=== PATIENT | male | born 1945 | race Caucasian/White ===

== ENCOUNTER 2016-10-18 22:55 | Emergency (ER) | payer MEDICARE, OTHER ==
[2016-10-19 00:37] LABS: BUN/CREATININE RATIO 29 (0-10)
[2016-10-19 01:36] LABS: HEMOGLOBIN 13.8 gm/dl (14.0-17.5); RED BLOOD COUNT 4.49 M/UL (4.20-5.50); WHITE BLOOD COUNT 6.2 K/UL (4.5-11.0)
== END 2016-10-19 13:33 | disposition home or self-care (01) ==
LOC: ER1 22:55 → ZEROF 10-19 05:38 → ER1 10-19 13:33
PROVIDERS: Family Medicine
DX: I25.10 Atherosclerotic heart disease of native coronary artery without angina pectoris (principal); F17.200 Nicotine dependence, unspecified, uncomplicated; Z88.5 Allergy status to narcotic agent; Z95.5 Presence of coronary angioplasty implant and graft; I10 Essential (primary) hypertension; E78.5 Hyperlipidemia, unspecified; J44.9 Chronic obstructive pulmonary disease, unspecified; K21.9 Gastro-esophageal reflux disease without esophagitis; Z91.14 Patient's other noncompliance with medication regimen
CPT/HCPCS: 36415; 71010; 80053; 80061; 82550; 82553; 83874; 84443; 84484; 85025; 93005; 99285

== ENCOUNTER 2016-10-26 08:54 | Emergency (ER) | payer MEDICARE, OTHER ==
[2016-10-26 09:49] LABS: HEMOGLOBIN 13.1 gm/dl (14.0-17.5); RED BLOOD COUNT 4.3 M/UL (4.20-5.50); WHITE BLOOD COUNT 5.5 K/UL (4.5-11.0)
[2016-10-26 10:09] LABS: BUN/CREATININE RATIO 23 (0-10)
== END 2016-10-26 11:30 | disposition home or self-care (01) ==
LOC: ER1 08:54
PROVIDERS: Emergency Medicine
DX: R33.9 Retention of urine, unspecified (principal); J44.9 Chronic obstructive pulmonary disease, unspecified; I51.9 Heart disease, unspecified; F17.210 Nicotine dependence, cigarettes, uncomplicated; K59.00 Constipation, unspecified; D64.9 Anemia, unspecified; E87.6 Hypokalemia; Z88.4 Allergy status to anesthetic agent
CPT/HCPCS: 36415; 80053; 81001; 85025; 99283

== ENCOUNTER 2016-10-27 15:58 | Emergency (ER) | payer MEDICARE, OTHER | END 2016-10-27 16:36 | disposition home or self-care (01) | LOC: ER1 15:58 | DX: Z46.6 Encounter for fitting and adjustment of urinary device (principal); Z88.5 Allergy status to narcotic agent; Z88.8 Allergy status to other drugs, medicaments and biological substances; Z87.891 Personal history of nicotine dependence; I10 Essential (primary) hypertension; J44.9 Chronic obstructive pulmonary disease, unspecified; Z79.82 Long term (current) use of aspirin; Z79.899 Other long term (current) drug therapy | CPT/HCPCS: 99283 ==

== ENCOUNTER 2020-08-10 14:42 | Inpatient (IN) | payer MEDICARE, OTHER ==
[~2020-08-10] VITALS: Ht 177.8 cm; Wt 117.9 kg
[~2020-08-10 14:42] MED LIST: AMLODIPINE BESYL5 MG PO; ASPIRIN EC81 MG PO; ATORVASTATIN CA20 MG PO; AUGMENTIN 875-1 EACH PO; COLACE 100MG C100 MG PO; DECADRON4 MG PO; DECADRON6 MG PO; DULERA 100 MCG8.8 GM INH; ELIQUIS 5 MG TAB5 MG PO; ELIQUIS5 MG PO; FOLIC ACID 1 MG1 MG PO; IBUPROFEN600 MG PO; IMDUR ER TAB 3030 MG PO; IPRAT-ALBUT 0.5-3 ML INH; LEVAQUIN500 MG PO; LIPITOR TAB 2020 MG PO; LISINOPRIL10 MG PO; LOPRESSOR 25 MG25 MG PO; LOPRESSOR 50 MG50 MG PO; LOPRESSOR50 MG PO; NITROGLYCERIN0.4 MG SL; NORCO 5-325 TA1 EACH PO; OMNICEF 300 MG300 MG PO; PHENERGAN 25 MG25 M1 PO; ROBITUSSIN AC480 ML PO; VENTOLIN HFA 66.7 GM INH; ZITHROMAX TRI-500 MG PO
[2020-08-10 15:47] LABS: HEMOGLOBIN 12.3 gm/dl (14.0-17.5); RED BLOOD COUNT 4.24 M/UL (4.20-5.50); WHITE BLOOD COUNT 8.3 K/UL (4.5-11.0)
[2020-08-11 03:23] LABS: HEMOGLOBIN 11.9 gm/dl (14.0-17.5); RED BLOOD COUNT 4.03 M/UL (4.20-5.50); WHITE BLOOD COUNT 7.1 K/UL (4.5-11.0)
[2020-08-13 03:00] LABS: BUN/CREATININE RATIO 15 (0-10)
[2020-08-13 03:21] LABS: RED BLOOD COUNT 3.84 M/UL (4.20-5.50); WHITE BLOOD COUNT 7.3 K/UL (4.5-11.0)
--- NOTE | 2020-08-13 12:13 | NUR ---
PATIENT LEFT PER SURGERY STAFF FOR BRONCHOSCOPY AT 0945. CONSENTS WERE SIGNED AND WITNESSED PER STAFF BY ANDREZ CEDILLO WHO IS PATIENTS . PATIENT RETURNS TO FLOOR PER SURGERY STAFF, TOLERATED BRONCHOSCOPY WELL. RIGHT UPPER LOBE WITH BRUSHING PER REPORT. WILL RETURN TO FLOOR, SUCTION AFFIXED TO WALL OF PATIENT ROOM.
[2020-08-15 09:32] LABS: HEMOGLOBIN 10.5 gm/dl (14.0-17.5); RED BLOOD COUNT 3.53 M/UL (4.20-5.50); WHITE BLOOD COUNT 6.1 K/UL (4.5-11.0)
[2020-08-15 10:09] LABS: BUN/CREATININE RATIO 10 (0-10)
[2020-08-16 03:37] LABS: HEMOGLOBIN 10.4 gm/dl (14.0-17.5); RED BLOOD COUNT 3.49 M/UL (4.20-5.50); WHITE BLOOD COUNT 5.1 K/UL (4.5-11.0)
[2020-08-16 03:49] LABS: BUN/CREATININE RATIO 16 (0-10)
[2020-08-17 02:33] LABS: HEMOGLOBIN 10.7 gm/dl (14.0-17.5); RED BLOOD COUNT 3.64 M/UL (4.20-5.50)
[2020-08-17 02:35] LABS: WHITE BLOOD COUNT 9.4 K/UL (4.5-11.0)
[2020-08-17 02:56] LABS: BUN/CREATININE RATIO 23 (0-10)
[2020-08-17] MEDS ORDERED: AMOX TR-K CLV1 EAC4 PO (13:01)
== END 2020-08-17 13:14 | disposition left against medical advice (07) | DRG 871 ==
LOC: ER1 14:42 → ZEROF 16:00 → PROG CARE 16:00
PROVIDERS: Emergency Medicine; Internal Medicine Pulmonary Disease; Physician Assistant; ADMIT Hospitalist
PROC: 0BD48ZX Extraction of Right Upper Lobe Bronchus, Via Natural or Artificial Opening Endoscopic, Diagnostic (ICD-10-PCS; 2020-08-13)
PROC: 0B9C8ZX Drainage of Right Upper Lung Lobe, Via Natural or Artificial Opening Endoscopic, Diagnostic (ICD-10-PCS; principal; 2020-08-13 08:30)
DX: A41.9 Sepsis, unspecified organism (principal); J18.9 Pneumonia, unspecified organism; G93.41 Metabolic encephalopathy; J96.21 Acute and chronic respiratory failure with hypoxia; N17.9 Acute kidney failure, unspecified; J44.0 Chronic obstructive pulmonary disease with (acute) lower respiratory infection; J44.1 Chronic obstructive pulmonary disease with (acute) exacerbation; C34.90 Malignant neoplasm of unspecified part of unspecified bronchus or lung; R65.20 Severe sepsis without septic shock; R55 Syncope and collapse; Z20.822 Contact with and (suspected) exposure to COVID-19; E78.5 Hyperlipidemia, unspecified; I12.9 Hypertensive chronic kidney disease with stage 1 through stage 4 chronic kidney disease, or unspecified chronic kidney disease; F17.210 Nicotine dependence, cigarettes, uncomplicated; N18.30 Chronic kidney disease, stage 3 unspecified; I25.10 Atherosclerotic heart disease of native coronary artery without angina pectoris; I10 Essential (primary) hypertension; E87.6 Hypokalemia; E83.42 Hypomagnesemia; D69.6 Thrombocytopenia, unspecified; F10.10 Alcohol abuse, uncomplicated; D64.9 Anemia, unspecified; I25.2 Old myocardial infarction; Z95.5 Presence of coronary angioplasty implant and graft; Z88.8 Allergy status to other drugs, medicaments and biological substances; Z83.3 Family history of diabetes mellitus; Z80.1 Family history of malignant neoplasm of trachea, bronchus and lung; Z82.49 Family history of ischemic heart disease and other diseases of the circulatory system; Z86.711 Personal history of pulmonary embolism; Z86.16 Personal history of COVID-19; Z79.82 Long term (current) use of aspirin; Z79.01 Long term (current) use of anticoagulants
CPT/HCPCS: 36415; 36600; 70450; 71045; 71250; 80048; 80053; 80202; 81001; 82140; 82550; 82553; 82803; 83605; 83615; 83735; 83874; 83880; 84100; 84132; 84439; 84443; 84484; 85025; 85027; 85610; 85730; 86140; 87040; 87070; 87081; 87205; 88341; 88342; 93005; 94640; 94664; 94760; 96365; 96366; 96367; 96368; 96375; 96376; 97162; 99285; G0480; J0696; J2001; J2060; J2543; J2704; J2920; J3370; J3411; J3475; J3480; J7030; J7040; J7070; U0002

== ENCOUNTER → 2020-09-07 | Outpatient (CLI) | payer MEDICARE, OTHER ==
[~2020-09-07] MED LIST changes: +ALBUTEROL2.5 MG/3 M NEB; +AMLODIPINE BES2.5 MG PO; +AMOX TR-K CLV1 EAC4 PO; +ANORO ELLIPTA1 EACH INH; +CARDIZEM 60MG T60 MG PO; +DILTIAZEM 24HR120 M1 PO; +DOXYCYCLINE HY100 MG PO; +HYDROCODON-ACE1 EAC2 PO; +HYDROCODON-ACE1 EAC4 PO; +IBU800 MG PO; +ISOSORBIDE MONO30 MG PO; +LEVOFLOXACIN750 MG PO; +LIPITOR40 MG PO; +PREDNISONE 20 M20 MG PO; +PREDNISONE10 MG PO
== END ==
LOC: HEART 5 15:49
DX: J44.9 Chronic obstructive pulmonary disease, unspecified (principal); M19.90 Unspecified osteoarthritis, unspecified site; R07.9 Chest pain, unspecified; R06.00 Dyspnea, unspecified; R05 Cough; R06.2 Wheezing
CPT/HCPCS: 94010; 94729

== ENCOUNTER 2020-10-16 22:30 | Inpatient (IN) | payer MEDICARE, OTHER ==
[~2020-10-16] VITALS: Ht 177.8 cm; Wt 89.8 kg
[~2020-10-16 22:30] MED LIST changes: -ALBUTEROL2.5 MG/3 M NEB; -AMLODIPINE BES2.5 MG PO; -ANORO ELLIPTA1 EACH INH; -CARDIZEM 60MG T60 MG PO; -DILTIAZEM 24HR120 M1 PO; -DOXYCYCLINE HY100 MG PO; -HYDROCODON-ACE1 EAC2 PO; -HYDROCODON-ACE1 EAC4 PO; -IBU800 MG PO; -ISOSORBIDE MONO30 MG PO; -LEVOFLOXACIN750 MG PO; -LIPITOR40 MG PO; -PREDNISONE 20 M20 MG PO; -PREDNISONE10 MG PO
[2020-10-16 23:11] LABS: HEMOGLOBIN 12.4 gm/dl (14.0-17.5); RED BLOOD COUNT 4.33 M/UL (4.20-5.50); WHITE BLOOD COUNT 8.4 K/UL (4.5-11.0)
[2020-10-16 23:32] LABS: BUN/CREATININE RATIO 11 (0-10)
[2020-10-17] MEDS ORDERED: AMLODIPINE BESYL5 MG PO (03:38)
[2020-10-17] MEDS ORDERED: IBU800 MG PO (03:39)
[2020-10-17] MEDS ORDERED: ISOSORBIDE MONO30 MG PO (03:40)
[2020-10-17 05:57] LABS: HEMOGLOBIN 11.5 gm/dl (14.0-17.5)
[2020-10-17 06:45] LABS: RED BLOOD COUNT 4.06 M/UL (4.20-5.50); WHITE BLOOD COUNT 6.3 K/UL (4.5-11.0)
[2020-10-17 16:23] LABS: HEMOGLOBIN 11.5 gm/dl (14.0-17.5); RED BLOOD COUNT 4.06 M/UL (4.20-5.50); WHITE BLOOD COUNT 5.9 K/UL (4.5-11.0)
[2020-10-18 05:12] LABS: HEMOGLOBIN 11.2 gm/dl (14.0-17.5); RED BLOOD COUNT 3.98 M/UL (4.20-5.50); WHITE BLOOD COUNT 6.7 K/UL (4.5-11.0)
[2020-10-18 16:38] LABS: HEMOGLOBIN 11.5 gm/dl (14.0-17.5)
[2020-10-19 04:51] LABS: HEMOGLOBIN 11.6 gm/dl (14.0-17.5); RED BLOOD COUNT 4.05 M/UL (4.20-5.50); WHITE BLOOD COUNT 7.8 K/UL (4.5-11.0)
[2020-10-19] MEDS ORDERED: LEVOFLOXACIN750 MG PO (09:47)
[2020-10-19] MEDS ORDERED: DILTIAZEM 24HR120 M1 PO (09:47)
== END 2020-10-19 13:50 | disposition home or self-care (01) | DRG 871 ==
LOC: ER1 22:30 → CCU 10-17 01:55 → CDU 10-17 01:55 → CCU 10-17 03:49 → PROG CARE 10-18 18:26
PROVIDERS: Emergency Medicine; Internal Medicine; Internal Medicine Pulmonary Disease; ADMIT Internal Medicine
DX: A41.9 Sepsis, unspecified organism (principal); I26.99 Other pulmonary embolism without acute cor pulmonale; J18.9 Pneumonia, unspecified organism; C34.90 Malignant neoplasm of unspecified part of unspecified bronchus or lung; J44.0 Chronic obstructive pulmonary disease with (acute) lower respiratory infection; J44.1 Chronic obstructive pulmonary disease with (acute) exacerbation; I48.91 Unspecified atrial fibrillation; I12.9 Hypertensive chronic kidney disease with stage 1 through stage 4 chronic kidney disease, or unspecified chronic kidney disease; N18.30 Chronic kidney disease, stage 3 unspecified; I25.10 Atherosclerotic heart disease of native coronary artery without angina pectoris; E78.5 Hyperlipidemia, unspecified; Z87.891 Personal history of nicotine dependence; Z79.01 Long term (current) use of anticoagulants; Z98.890 Other specified postprocedural states; Z86.16 Personal history of COVID-19; Z86.718 Personal history of other venous thrombosis and embolism
CPT/HCPCS: ECHO; 0240U; 36415; 71045; 80048; 80053; 80202; 82550; 82553; 83605; 83690; 83735; 83874; 83880; 84100; 84484; 85014; 85018; 85025; 85027; 85610; 85730; 86140; 87040; 87070; 87081; 87205; 93005; 93306; 93970; 94640; 94664; 94760; 96365; 96366; 96367; 96375; 99285; C9113; G0480; J0692; J1644; J2920; J3370; J7030; J7070; Q9967

== ENCOUNTER 2020-10-20 23:27 | Observation (INO) | payer MEDICARE, OTHER ==
[~2020-10-20 23:27] MED LIST changes: +DILTIAZEM 24HR120 M1 PO; +IBU800 MG PO; +ISOSORBIDE MONO30 MG PO; +LEVOFLOXACIN750 MG PO
[2020-10-21 00:26] LABS: HEMOGLOBIN 11.2 gm/dl (14.0-17.5); RED BLOOD COUNT 3.95 M/UL (4.20-5.50)
[2020-10-21 00:27] LABS: WHITE BLOOD COUNT 10.2 K/UL (4.5-11.0)
[2020-10-21 00:45] LABS: BUN/CREATININE RATIO 20 (0-10)
[2020-10-21] MEDS ORDERED: ANORO ELLIPTA1 EACH INH (03:39)
[2020-10-21] MEDS ORDERED: LIPITOR40 MG PO (12:54)
[2020-10-21] MEDS ORDERED: ALBUTEROL2.5 MG/3 M NEB (12:55)
== END 2020-10-22 10:21 | disposition home or self-care (01) ==
LOC: ER1 23:27 → CDU 10-21 01:15
PROVIDERS: Emergency Medicine; ADMIT Internal Medicine
DX: J44.1 Chronic obstructive pulmonary disease with (acute) exacerbation (principal); R04.2 Hemoptysis; I25.10 Atherosclerotic heart disease of native coronary artery without angina pectoris; I10 Essential (primary) hypertension; E78.5 Hyperlipidemia, unspecified; Z85.118 Personal history of other malignant neoplasm of bronchus and lung; Z86.711 Personal history of pulmonary embolism; Z95.5 Presence of coronary angioplasty implant and graft; Z87.891 Personal history of nicotine dependence; Z88.4 Allergy status to anesthetic agent; Z88.8 Allergy status to other drugs, medicaments and biological substances; Z79.01 Long term (current) use of anticoagulants; Z20.822 Contact with and (suspected) exposure to COVID-19
CPT/HCPCS: 71045; 80053; 82550; 82553; 83605; 83690; 83735; 83874; 83880; 84100; 84484; 85018; 85025; 85610; 85730; 87040; 93005; 94640; 94664; 94760; 99285; G0378; J1642; J2920; U0002

== ENCOUNTER 2020-12-02 08:45 | Emergency (ER) | payer MEDICARE, OTHER ==
[~2020-12-02 08:45] MED LIST changes: +ALBUTEROL2.5 MG/3 M NEB; +ANORO ELLIPTA1 EACH INH; +LIPITOR40 MG PO
[2020-12-02 09:15] LABS: HEMOGLOBIN 11.4 gm/dl (14.0-17.5); RED BLOOD COUNT 4.09 M/UL (4.20-5.50); WHITE BLOOD COUNT 8.8 K/UL (4.5-11.0)
[2020-12-02 09:51] LABS: BUN/CREATININE RATIO 24 (0-10)
[2020-12-02] MEDS ORDERED: DOXYCYCLINE HY100 MG PO (14:00)
[2020-12-02] MEDS ORDERED: PREDNISONE 20 M20 MG PO (14:00)
[2020-12-02] MEDS ORDERED: HYDROCODON-ACE1 EAC4 PO (14:32)
== END 2020-12-02 16:08 | disposition home or self-care (01) ==
LOC: ER1 08:45
PROVIDERS: Physician Assistant
DX: J44.1 Chronic obstructive pulmonary disease with (acute) exacerbation (principal); C34.90 Malignant neoplasm of unspecified part of unspecified bronchus or lung; C79.9 Secondary malignant neoplasm of unspecified site; E78.5 Hyperlipidemia, unspecified; I10 Essential (primary) hypertension; I25.10 Atherosclerotic heart disease of native coronary artery without angina pectoris; Z86.711 Personal history of pulmonary embolism; Z85.118 Personal history of other malignant neoplasm of bronchus and lung; Z88.4 Allergy status to anesthetic agent; Z88.8 Allergy status to other drugs, medicaments and biological substances; Z79.01 Long term (current) use of anticoagulants; Z87.891 Personal history of nicotine dependence
CPT/HCPCS: 36600; 71045; 80053; 82550; 82553; 82803; 83690; 83874; 84484; 85025; 85379; 93005; 94664; 96374; 99285; J2930; J7030; Q9967

== ENCOUNTER 2020-12-11 17:05 | Inpatient (IN) | payer MEDICARE, OTHER ==
[~2020-12-11] VITALS: Ht 172.7 cm; Wt 81.2 kg
[~2020-12-11 17:05] MED LIST changes: +DOXYCYCLINE HY100 MG PO; +HYDROCODON-ACE1 EAC4 PO; +PREDNISONE 20 M20 MG PO
[2020-12-11 17:46] LABS: HEMOGLOBIN 10.6 gm/dl (14.0-17.5); RED BLOOD COUNT 3.91 M/UL (4.20-5.50); WHITE BLOOD COUNT 10.3 K/UL (4.5-11.0)
[2020-12-11 18:09] LABS: BUN/CREATININE RATIO 23 (0-10)
[2020-12-11] MEDS ORDERED: AMLODIPINE BES2.5 MG PO (20:44)
[2020-12-11] MEDS ORDERED: HYDROCODON-ACE1 EAC2 PO (20:49)
[2020-12-11] MEDS ORDERED: VENTOLIN HFA 66.7 GM INH (20:49)
[2020-12-12 05:59] LABS: HEMOGLOBIN 10.2 gm/dl (14.0-17.5); RED BLOOD COUNT 3.78 M/UL (4.20-5.50); WHITE BLOOD COUNT 7.2 K/UL (4.5-11.0)
[2020-12-12 06:23] LABS: BUN/CREATININE RATIO 21 (0-10)
--- NOTE | 2020-12-12 17:38 | NUR ---
PULLED 2 PERCOCETS PER PATIENTS EMAR. OMNICELL SHOWED NO WASTE DUE. KEPT PACKAGE AND 0.5 PERCOSET WASTE TO DO WASTE WITH ANOTHER RN. RAMIREZ MOREL RN WITNESSED OMNICELL SHOWING NO WASTE OR MISCOUNT AND WITNESSED PACKAGE AND 0.5 PILL BEING PROPERLY DISPOSED OF.
--- NOTE | 2020-12-12 19:01 | NUR ---
CALLED THIS AM REPORTED PATIENT TACHYCARDIC IN THE 160'S. DR. HUYNH REQUESTED A STAT EKG, CHEST X RAY AND CARDIAC CONSULT.
--- NOTE | 2020-12-13 12:53 | NUR ---
PATIENT NOTED TO BE TACHYCARDIC THE MAJORITY OF THE DAY TODAY. EKG PERFORMED WITH A RESULT OF AFIB WITH RVR WITH A RATE IN THE 140'S. MADE AWARE AND SHE STATES THAT SHE WANTS THE PATIENT TO GO TO PCU AND BE PUT ON A DILTIAZEM DRIP. COMBINED RAIL OPERATOR MADE AWARE.
--- NOTE | 2020-12-13 13:31 | NUR ---
REPORT GIVEN TO DENZEL BONILLA AT THIS TIME.
[2020-12-14 03:38] LABS: BUN/CREATININE RATIO 24 (0-10)
[2020-12-14] MEDS ORDERED: PREDNISONE10 MG PO (16:05)
[2020-12-14] MEDS ORDERED: CARDIZEM 60MG T60 MG PO (16:05)
== END 2020-12-14 19:20 | disposition home or self-care (01) | DRG 191 ==
LOC: ER1 17:05 → CDU 18:40 → PROG CARE 18:40 → MED SURG 4 21:03 → PROG CARE 12-13 13:49
PROVIDERS: Emergency Medicine; ADMIT Internal Medicine
DX: J44.1 Chronic obstructive pulmonary disease with (acute) exacerbation (principal); R65.10 Systemic inflammatory response syndrome (SIRS) of non-infectious origin without acute organ dysfunction; I47.1 Supraventricular tachycardia; C34.90 Malignant neoplasm of unspecified part of unspecified bronchus or lung; C78.7 Secondary malignant neoplasm of liver and intrahepatic bile duct; C79.51 Secondary malignant neoplasm of bone; C79.72 Secondary malignant neoplasm of left adrenal gland; C79.71 Secondary malignant neoplasm of right adrenal gland; E87.6 Hypokalemia; I45.10 Unspecified right bundle-branch block; D64.9 Anemia, unspecified; E78.5 Hyperlipidemia, unspecified; R07.89 Other chest pain; F17.210 Nicotine dependence, cigarettes, uncomplicated; I25.10 Atherosclerotic heart disease of native coronary artery without angina pectoris; E86.0 Dehydration; Z86.711 Personal history of pulmonary embolism; Z95.5 Presence of coronary angioplasty implant and graft; Z86.16 Personal history of COVID-19; Z80.1 Family history of malignant neoplasm of trachea, bronchus and lung; Z82.49 Family history of ischemic heart disease and other diseases of the circulatory system; Z83.3 Family history of diabetes mellitus; Z88.8 Allergy status to other drugs, medicaments and biological substances; Z79.899 Other long term (current) drug therapy
CPT/HCPCS: 36415; 71045; 80048; 80053; 81001; 82550; 82553; 83605; 83690; 83735; 83874; 83880; 84132; 84439; 84443; 84484; 85025; 85610; 85730; 87040; 93005; 94640; 94664; 94760; 96374; 99285; C9113; J0696; J1650; J2270; J2920; J7030; Q9967; U0002

== ENCOUNTER 2021-01-01 14:06 | Emergency (ER) | payer MEDICARE, OTHER ==
[~2021-01-01 14:06] MED LIST changes: +AMLODIPINE BES2.5 MG PO; +CARDIZEM 60MG T60 MG PO; +HYDROCODON-ACE1 EAC2 PO; +PREDNISONE10 MG PO
[2021-01-01 15:27] LABS: HEMOGLOBIN 10.3 gm/dl (14.0-17.5); RED BLOOD COUNT 3.9 M/UL (4.20-5.50); WHITE BLOOD COUNT 27.6 K/UL (4.5-11.0)
[2021-01-01 15:45] LABS: BUN/CREATININE RATIO 17 (0-10)
== END 2021-01-01 15:35 | disposition left against medical advice (07) ==
LOC: ER1 14:06
PROVIDERS: Emergency Medicine
DX: R06.00 Dyspnea, unspecified (principal); J44.9 Chronic obstructive pulmonary disease, unspecified; I25.10 Atherosclerotic heart disease of native coronary artery without angina pectoris; I10 Essential (primary) hypertension; Z86.711 Personal history of pulmonary embolism; Z85.118 Personal history of other malignant neoplasm of bronchus and lung; Z85.05 Personal history of malignant neoplasm of liver
CPT/HCPCS: 36600; 80053; 82550; 82553; 82803; 83605; 83690; 83874; 83880; 84484; 85025; 93005; 94640; 94664; 99285; J1642

== ENCOUNTER → 2021-02-18 | Outpatient (CLI) | payer MEDICARE, OTHER ==
[~2021-02-18] MED LIST changes: +COLACE100 MG PO; +MEGACE 400400 MG/10 PO; +MORPHINE SULFAT30 M4 PO
== END ==
LOC: CT 09:14
DX: C34.11 Malignant neoplasm of upper lobe, right bronchus or lung (principal); C77.1 Secondary and unspecified malignant neoplasm of intrathoracic lymph nodes; C79.51 Secondary malignant neoplasm of bone; M84.48XA Pathological fracture, other site, initial encounter for fracture; Z79.899 Other long term (current) drug therapy; Z87.891 Personal history of nicotine dependence
CPT/HCPCS: 71260; Q9967

== ENCOUNTER 2021-04-13 01:45 | Inpatient (IN) | payer MEDICARE, OTHER ==
[~2021-04-13] VITALS: Ht 172.7 cm; Wt 67.6 kg
[~2021-04-13 01:45] MED LIST changes: -COLACE100 MG PO; -MEGACE 400400 MG/10 PO; -MORPHINE SULFAT30 M4 PO
[2021-04-13 02:09] LABS: HEMOGLOBIN 8.3 gm/dl (14.0-17.5); RED BLOOD COUNT 3.04 M/UL (4.20-5.50); WHITE BLOOD COUNT 3.2 K/UL (4.5-11.0)
[2021-04-13 02:28] LABS: BUN/CREATININE RATIO 23 (0-10)
[2021-04-13] MEDS ORDERED: MORPHINE SULFAT30 M4 PO (12:38)
[2021-04-13] MEDS ORDERED: COLACE100 MG PO (12:38)
[2021-04-13] MEDS ORDERED: MEGACE 400400 MG/10 PO (12:39)
--- NOTE | 2021-04-13 16:59 | NUR ---
1200 LONG DISCUSSION HAD WITH PT'S AND SON ABOUT PATIENT'S CONDITION. EXPLAINED THAT PT HAD POOR PROGNOSIS AND MAY NOT MAKE IT THROUGH THE NIGHT. EXPLAINED THAT PT'S HEARTRATE WAS HIGH AND B/P HAD BEEN RUNNING LOW. EXPLAINED PURPOSE OF MEDICATIONS BEING GIVEN AND IMPORTANCE OF AIRVO. EXPLAINED WHAT HAPPENED DURING CPR. AFTER DISCUSSING THE SITUATION WITH ALL FAMILY MEMBERS, - EM - DECIDED TO MAKE PT A DNR/DNI. NOTIFIED OF DECISION. 1230 FAMILY REQUEST THAT PT BE PLACED ON BIPAP TO SEE IF IT HELPED WITH HIS BREATHING. BIPAP PLACED PER RT. O2 SAT 95-100% ON BIPAP. PT REMAINS RESTLESS. MD NOTIFIED WITH NEW ORDER NOTED. HEARTRATE REMAINS ELEVATED. CARDIZEM DRIP ORDERED. FAMILY REQUEST THAT IT BE HELD AT THE MOMENT.
--- NOTE | 2021-04-13 18:41 | NUR ---
PERMISSION OBTAINED FROM MANAGER OF LEARNING FOR FAMILY MEMBER TO STAY WITH PATIENT. REMAINS AT BEDSIDE
[2021-04-14 05:02] LABS: HEMOGLOBIN 8.2 gm/dl (14.0-17.5); RED BLOOD COUNT 2.98 M/UL (4.20-5.50); WHITE BLOOD COUNT 17.9 K/UL (4.5-11.0)
[2021-04-14 05:25] LABS: BUN/CREATININE RATIO 19 (0-10)
--- NOTE | 2021-04-14 18:05 | NUR ---
HAVE NOTIFIED PHYSICIAN OF PATIENTS AT 170. hAVE ATTEMPTED TO CONTACT [facility]OY SEVERAL TIMES AND IT RINGS THEN RINGS BUSY. MULTIPLE ATTEMPTS.
--- NOTE | 2021-04-14 19:01 | NUR ---
CALLED [facility] PER GIVEN BY KLEVER MAHONEY. FAMILY AWARE AND HAS LEFT. PT CLEANED UP AND READIED FOR HOME.
== END 2021-04-14 17:09 | disposition expired | DRG 871 ==
LOC: ER1 01:45 → CDU 09:05 → CCU 11:32 → PROG CARE 04-14 15:33
PROVIDERS: Physician Assistant Medical; Student in an Organized Health Care Education/Training Program; ADMIT Internal Medicine
PROC: 3E033XZ Introduction of Vasopressor into Peripheral Vein, Percutaneous Approach (ICD-10-PCS; principal; 2021-04-13)
PROC: 5A12012 Performance of Cardiac Output, Single, Manual (ICD-10-PCS; 2021-04-13)
PROC: 5A09357 Assistance with Respiratory Ventilation, Less than 24 Consecutive Hours, Continuous Positive Airway Pressure (ICD-10-PCS; 2021-04-13)
DX: A41.9 Sepsis, unspecified organism (principal); J18.9 Pneumonia, unspecified organism; Z51.5 Encounter for palliative care; Z66 Do not resuscitate; Z20.822 Contact with and (suspected) exposure to COVID-19; J96.01 Acute respiratory failure with hypoxia; R65.21 Severe sepsis with septic shock; G93.40 Encephalopathy, unspecified; C34.90 Malignant neoplasm of unspecified part of unspecified bronchus or lung; C79.51 Secondary malignant neoplasm of bone; E87.2 Acidosis; J44.0 Chronic obstructive pulmonary disease with (acute) lower respiratory infection; I25.10 Atherosclerotic heart disease of native coronary artery without angina pectoris; D69.6 Thrombocytopenia, unspecified; E87.6 Hypokalemia; E88.09 Other disorders of plasma-protein metabolism, not elsewhere classified; I45.10 Unspecified right bundle-branch block; F41.9 Anxiety disorder, unspecified; E78.5 Hyperlipidemia, unspecified; F10.10 Alcohol abuse, uncomplicated; I48.0 Paroxysmal atrial fibrillation; F17.210 Nicotine dependence, cigarettes, uncomplicated; N18.32 Chronic kidney disease, stage 3b; I12.9 Hypertensive chronic kidney disease with stage 1 through stage 4 chronic kidney disease, or unspecified chronic kidney disease; Z79.01 Long term (current) use of anticoagulants; Z86.711 Personal history of pulmonary embolism; Z86.16 Personal history of COVID-19; Z87.01 Personal history of pneumonia (recurrent); Z88.8 Allergy status to other drugs, medicaments and biological substances; Z88.6 Allergy status to analgesic agent; Z95.5 Presence of coronary angioplasty implant and graft; Z83.3 Family history of diabetes mellitus; Z82.49 Family history of ischemic heart disease and other diseases of the circulatory system; Z80.1 Family history of malignant neoplasm of trachea, bronchus and lung
CPT/HCPCS: 36415; 36556; 36600; 71045; 74018; 80053; 80202; 82550; 82553; 82803; 83605; 83735; 83874; 83880; 84484; 85025; 87040; 93005; 94640; 94660; 94664; 94760; 96365; 96366; 96367; 96375; 96376; 99285; C9113; J0692; J0696; J1160; J1630; J1650; J2060; J2270; J2405; J3370; J7030; J7070; U0002